=== PATIENT | female | born 1995 | race Two or more races ===

== ENCOUNTER 2018-03-20 00:44 | Emergency (ER) | payer SELFPAY ==
[2018-03-20 00:53] VITALS: TEMP 97.6
--- NOTE | 2018-03-20 01:35 | ED PDOC ---
HPI: Psych/Substance Abuse Time Seen by Provider: 03/20/18 00:58 Chief Complaint (Nursing): Alcohol Ingestion Chief Complaint (Provider): alcohol intoxication ED Caveat: Intoxicated History/Exam Limitations: intoxication Onset/Duration Of Symptoms: Hrs (today) Current Symptoms Are (Timing): Still Present Additional Complaint(s): Wily Rosales is a 22 year old female, with unknown past medical history, who was brought to the emergency department by EMS for alcohol intoxication. Per EMS, patient was found at a stop. Unable to obtain history from patient due to alcohol intoxication. PMD: None provided. Past Medical History Reviewed: Historical Data, Nursing Documentation, Vital Signs, Unable To Obtain Vital Signs: Last Vital Signs Temp 97.6 F 03/20/18 00:50 Pulse 61 03/20/18 00:50 Resp 14 03/20/18 00:50 BP 114/64 03/20/18 00:50 Pulse Ox 97 03/20/18 00:50 - Surgical History Surgical History: No Surg Hx - Family History Family History: States: No Known Family Hx, Unknown Family Hx - Allergies Allergies/Adverse Reactions: Allergies Allergy/AdvReac Type Severity Reaction Status Date / Time Unobtainable Allergy Verified 03/20/18 00:50 Review of Systems Review Of Systems: ROS cannot be obtained secondary to pt's inabilty to answer questions. Physical Exam - Reviewed Nursing Documentation Reviewed: Yes Vital Signs Reviewed: Yes - Physical Exam Appears: Positive for: No Acute Distress Head Exam: Positive for: ATRAUMATIC, NORMAL INSPECTION, NORMOCEPHALIC Skin: Positive for: Normal Color, Warm, Dry Eye Exam: Positive for: Normal appearance, EOMI, PERRL ENT: Positive for: Normal ENT Inspection Cardiovascular/Chest: Positive for: Regular Rate, Rhythm. Negative for: Murmur Respiratory: Positive for: Normal Breath Sounds. Negative for: Respiratory Distress Extremity: Negative for: Deformity, Swelling Neurologic/Psych: Negative for: Alert (sleeping but arousable), Oriented - Laboratory Results Result Diagrams: 03/20/18 02:10 03/20/18 01:41 - ECG O2 Sat by Pulse Oximetry: 97 (RA) Pulse Ox Interpretation: Normal - Progress Re-evaluation Time: 05:16 Condition: Re-examined, Improved Medical Decision Making Medical Decision Making: Time: 00:58 Initial impression: Alcohol intoxication. Initial Plan: --Alcohol serum --BMP --CBC w/ differential --Sodium Chloride 1,000 ml IV 1,000 mls/hr --Clinical sobriety --Reevaluation ----- Scribe Attestation: Documented by Kvng Madrigal, acting as a scribe for Thais Crawley MD. Provider Scribe Attestation: All medical record entries made by the Scribe were at my direction and personally dictated by me. I have reviewed the chart and agree that the record accurately reflects my personal performance of the history, physical exam, medical decision making, and the department course for this patient. I have also personally directed, reviewed, and agree with the discharge instructions and disposition. Disposition - Clinical Impression Clinical Impression: Alcohol abuse with intoxication - Patient ED Disposition Is Patient to be Admitted: No Doctor Will See Patient In The: Office Counseled Patient/Family Regarding: Studies Performed, Diagnosis, Need For Followup - Disposition Disposition: Routine/Home Disposition Time: 05:16 Condition: IMPROVED Instructions: Effects of Alcohol on Your Health
[2018-03-20] MEDS ORDERED: Sodium Chloride 0.9% 1,000 ML IV STA (01:54)
[2018-03-20 02:13] LABS: BLOOD UREA NITROGEN 6 mg/dl (7-17); CALCIUM 9.2 mg/dL (8.4-10.2); GFR NON-AFRICAN AMERICAN > 60
[2018-03-20 02:20] LABS: BASO # 0.1 K/uL (0.0-0.2); BASO % 0.7 % (0.0-2.0); EOS % 0.4 % (0.0-4.0); HEMOGLOBIN 13.7 g/dL (12.0-16.0); LYMPH % 22.1 % (20.0-40.0); MEAN CELL VOLUME 90.6 fl (81.0-99.0); MEAN CORPUSCULAR HEMOGLOBIN 30.3 pg (27.0-31.0); MEAN CORPUSCULAR HGB CONC 33.5 g/dL (33.0-37.0); MEAN PLATELET VOLUME 7.3 fl (7.2-11.7); MONO # 0.6 K/uL (0.0-0.8); MONO % 6.7 % (0.0-10.0); NEUT # 6.3 K/uL (1.8-7.0); NEUT % 70.1 % (50.0-75.0); NRBC % 0.2 % (0.0-0.0); RBC 4.51 Mil/uL (3.80-5.20); RED CELL DISTRIBUTION WIDTH 14.3 % (11.5-14.5); WHITE BLOOD COUNT 8.9 K/uL (4.8-10.8)
[2018-03-20 04:28] VITALS: BP 101/53; PULSE 76; RESP 17
[2018-03-20 05:17] VITALS: O2SAT 97
== END 2018-03-20 05:20 | disposition home or self-care (01) ==
LOC: H.ER 00:44
DX: F10.129 Alcohol abuse with intoxication, unspecified (principal)
CPT/HCPCS: 80048; 82948; 85025; 96360; 99283; G0480; J2405; J7030